=== PATIENT | female | born 2000 | race Hispanic/Latino ===

== ENCOUNTER 2022-06-19 16:59 | Emergency (ER) | payer MEDICARE ==
[~2022-06-19] VITALS: Ht 149.9 cm; Wt 49.9 kg
[2022-06-19] MEDS ORDERED: REGLAN10 MG PO (17:36)
== END 2022-06-19 18:25 | disposition home or self-care (01) ==
LOC: ER 17:06
DX: O21.9 Vomiting of pregnancy, unspecified (principal); O21.0 Mild hyperemesis gravidarum
CPT/HCPCS: 99282